=== PATIENT | female | born 1980 | race African-American/Black ===

== ENCOUNTER 2017-12-22 07:17 | Emergency (ER) | payer MEDICAID ==
[~2017-12-22] VITALS: Ht 154.9 cm; Wt 57.0 kg
[2017-12-22 08:41] LABS: BASOPHILS % 1.6 % (0.0-2.0); HEMATOCRIT. 30.4 % (36.0-48.0); HEMOGLOBIN. 9.2 g/dL (12.0-16.0); LYMPHOCYTES % 20.5 % (20.0-50.0); MEAN CORPUSCULAR HEMOGLOBIN 21.6 pg (28.0-32.0); MEAN CORPUSCULAR VOLUME 71.4 fL (81.0-99.0); MEAN PLATELET VOLUME 7.6 fl (7.4-10.4); MONOCYTES % 14.3 % (2.0-8.0); NEUTROPHILS % 62.6 % (40.0-76.0); PLATELET 219 x1000/uL (130-400); RED BLOOD CELL COUNT 4.26 mill/uL (4.2-5.4); RED CELL DISTRIBUTION WIDTH 19.2 % (11.6-14.6)
[2017-12-22 08:43] LABS: CHLORIDE 105 mEq/L (98-107)
[2017-12-22 08:59] LABS: CLARITY URINE CLEAR (CLEAR); COLOR URINE YELLOW (YELLOW); KETONES URINE NEGATIVE (NEGATIVE); LEUKOCYTE ESTERASE URINE 2+ (NEGATIVE); NITRITE URINE NEGATIVE (NEGATIVE); OCCULT BLOOD URINE NEGATIVE (NEGATIVE); PROTEIN URINE NEGATIVE (NEGATIVE); SPECIFIC GRAVITY URINE 1.013 (1.005-1.030)
[2017-12-22 12:09] VITALS: BP 113/76
== END 2017-12-22 12:13 | disposition home or self-care (01) ==
LOC: ER 07:17
DX: F41.9 Anxiety disorder, unspecified (principal); I10 Essential (primary) hypertension; D64.9 Anemia, unspecified; F17.200 Nicotine dependence, unspecified, uncomplicated; Z88.5 Allergy status to narcotic agent; Z98.890 Other specified postprocedural states
CPT/HCPCS: 36415; 80053; 81003; 81025; 84484; 85025; 93005; 99285

== ENCOUNTER 2019-04-08 13:02 | Inpatient (IN) | payer MEDICAID ==
[~2019-04-08] VITALS: Ht 154.9 cm; Wt 56.2 kg
[2019-04-08] MEDS ORDERED: SODIUM CHLORIDE 0.9% 1,000 ML IV ONE (13:46)
[2019-04-08 14:31] LABS: CLARITY URINE CLOUDY (CLEAR); COLOR URINE YELLOW (YELLOW); KETONES URINE NEGATIVE (NEGATIVE); LEUKOCYTE ESTERASE URINE 3+ (NEGATIVE); NITRITE URINE NEGATIVE (NEGATIVE); OCCULT BLOOD URINE NEGATIVE (NEGATIVE); PROTEIN URINE NEGATIVE (NEGATIVE); SPECIFIC GRAVITY URINE 1.017 (1.005-1.030); UROBILINOGEN URINE 0.2 E.U./dL (0.2-1.0)
[2019-04-08 14:31] LABS: HEMATOCRIT. 26.5 % (36.0-48.0); HEMOGLOBIN. 7.6 g/dL (12.0-16.0); MEAN CORPUSCULAR HEMOGLOBIN 18.1 pg (28.0-32.0); MEAN CORPUSCULAR VOLUME 63.3 fL (81.0-99.0); MEAN PLATELET VOLUME 8.7 fl (7.4-10.4); PLATELET 194 x1000/uL (130-400); RED BLOOD CELL COUNT 4.19 mill/uL (4.2-5.4); RED CELL DISTRIBUTION WIDTH 21.4 % (11.6-14.6)
[2019-04-08 14:38] LABS: CHLORIDE 109 mEq/L (98-107); PROTHROMBIN TIME 10.2 sec (9.6-11.0)
[2019-04-08 14:43] LABS: ETHANOL BLOOD < 10 mg/dL
[2019-04-08 14:44] LABS: *AMPHETAMINES SCREEN URINE NEGATIVE (NEGATIVE)
[2019-04-08 14:45] LABS: *BARBITURATES SCREEN URINE NEGATIVE (NEGATIVE); *BENZODIAZEPINES SCREEN URINE NEGATIVE (NEGATIVE); *COCAINE SCREEN URINE NEGATIVE (NEGATIVE); METHADONE URINE SCREEN NEGATIVE (NEGATIVE); OPIATES URINE SCREEN NEGATIVE (NEGATIVE); PHENCYCLIDINE URINE SCREEN NEGATIVE (NEGATIVE)
[2019-04-08 14:45] LABS: TOTAL IRON BINDING CAPACITY 500 ug/dL (250-450)
[2019-04-08] MEDS ORDERED: POTASSIUM CHLORIDE 20MEQ TABLET SR PO ONE (14:45)
[2019-04-08 14:48] LABS: CANNABINOID URINE SCREEN PRESUMTIVE POSITIVE (NEGATIVE)
[2019-04-08 14:50] LABS: HCG SCREEN NEGATIVE
[2019-04-08 15:18] LABS: PLATELET ESTIMATE NORMAL
[2019-04-08 15:53] LABS: T4 FREE 0.8 ng/dL (0.76-1.46)
[2019-04-08] MEDS ORDERED: CEFTRIAXONE 1 G PREMIX 50 ML IV ONE (16:00)
[2019-04-08 22:50] VITALS: BP 140/101
[2019-04-09] VITALS (9 sets, daily range): BP systolic 116–146; BP diastolic 59–101
[2019-04-09 09:28] LABS: BASOPHILS % 1.1 % (0.0-2.0); EOSINOPHILS % 0.9 % (0.0-5.0); HEMATOCRIT. 24.7 % (36.0-48.0); LYMPHOCYTES % 41.4 % (20.0-50.0); MEAN CORPUSCULAR HEMOGLOBIN 18.2 pg (28.0-32.0); MEAN PLATELET VOLUME 8.9 fl (7.4-10.4); MONOCYTES % 10.6 % (2.0-8.0); PLATELET 164 x1000/uL (130-400); RED BLOOD CELL COUNT 3.86 mill/uL (4.2-5.4); RED CELL DISTRIBUTION WIDTH 21.7 % (11.6-14.6)
[2019-04-09 09:43] LABS: CHLORIDE 112 mEq/L (98-107)
[2019-04-09] MEDS ORDERED: CLONIDINE 0.1MG TABLET PO PRN (09:45)
[2019-04-09] MEDS ORDERED: ACETAMINOPHEN 325MG TABLET PO PRN (09:45)
[2019-04-09] MEDS ORDERED: ONDANSETRON HCL 4MG/2ML INJ IV PRN (09:45)
[2019-04-09] MEDS ORDERED: DIPHENHYDRAMINE 50MG/ML VIAL IV NR (10:00)
[2019-04-09] MEDS ORDERED: ACETAMINOPHEN 325MG TABLET PO NR (10:00)
[2019-04-09 12:15] LABS: TOTAL IRON BINDING CAPACITY 442 ug/dL (250-450)
[2019-04-09 12:40] LABS: FOLIC ACID (FOLATE) SERUM 11.6 ng/mL (>5.38)
[2019-04-09] MEDS ORDERED: CYANOCOBALAMIN 1000MCG/ML VIAL IM NR (13:15)
[2019-04-09] MEDS ORDERED: IRON SUCROSE COMPLEX 100 MG/5 ML ML IV NR (14:00)
[2019-04-09] MEDS: SODIUM CHLORIDE 0.9% 1,000 ML IV SCH ×2 (15:40→21:26)
[2019-04-09] MEDS ORDERED: CEFTRIAXONE 1 G PREMIX 50 ML IV SCH (16:00)
[2019-04-09 20:54] LABS: HEMATOCRIT 29.4 % (36.0-48.0); HEMOGLOBIN 8.6 g/dL (12.0-16.0)
[2019-04-09] MEDS ORDERED: ZOLPIDEM TARTRATE 5MG TABLET PO PRN (21:00)
[2019-04-09] MEDS: CEFTRIAXONE 1 G PREMIX 50 ML IV SCH (21:25)
[2019-04-10] VITALS (11 sets, daily range): BP systolic 103–142; BP diastolic 68–85
[2019-04-10] MEDS ORDERED: IRON SUCROSE COMPLEX 100 MG/5 ML ML IV SCH (09:00)
[2019-04-10 09:13] LABS: HEMATOCRIT 27.8 % (36.0-48.0); HEMOGLOBIN 8.1 g/dL (12.0-16.0)
[2019-04-10] MEDS ORDERED: CYANOCOBALAMIN 1000MCG/ML VIAL IM SCH (18:00)
[2019-04-10] MEDS ORDERED: IRON SUCROSE COMPLEX 100 MG/5 ML ML IV NR (18:45)
[2019-04-10 19:39] LABS: HEMATOCRIT 30.8 % (36.0-48.0); HEMOGLOBIN 9.4 g/dL (12.0-16.0)
[2019-04-10] MEDS: CEFTRIAXONE 1 G PREMIX 50 ML IV SCH (20:28)
== END 2019-04-10 21:50 | disposition home or self-care (01) | DRG 663 ==
LOC: ER 13:02 → EDBEDREQ 14:46 → 8WST 15:56 → EDBEDREQ 16:02 → EDBEDREQTM 16:02 → ENRESERV 20:32
PROVIDERS: ADMIT Internal Medicine; ATTEND Internal Medicine
PROC: 30233N1 Transfusion of Nonautologous Red Blood Cells into Peripheral Vein, Percutaneous Approach (ICD-10-PCS; principal; 2019-04-09)
DX: D51.9 Vitamin B12 deficiency anemia, unspecified (principal); F50.89 Other specified eating disorder; E86.0 Dehydration; I69.354 Hemiplegia and hemiparesis following cerebral infarction affecting left non-dominant side; N39.0 Urinary tract infection, site not specified; E87.6 Hypokalemia; D50.9 Iron deficiency anemia, unspecified; I10 Essential (primary) hypertension; F17.200 Nicotine dependence, unspecified, uncomplicated; Z68.23 Body mass index [BMI] 23.0-23.9, adult; Z88.5 Allergy status to narcotic agent
CPT/HCPCS: 36415; 71045; 80048; 80305; 80320; 81003; 81025; 82270; 82607; 82728; 82746; 83540; 83550; 83880; 84439; 84443; 84484; 84703; 85014; 85018; 85044; 86850; 86900; 86920; 93005; 93970; 96361; 96374; 97162; 99285; C1893; J0696; J1200; J3420; J7030; J7040; P9016; G0480

== ENCOUNTER 2022-12-13 13:01 | Emergency (ER) | payer MEDICAID ==
[~2022-12-13] VITALS: Ht 162.6 cm; Wt 73.0 kg
[2022-12-13 13:08] VITALS: O2SAT 100
[2022-12-13] MEDS ORDERED: TETRACAINE 0.5% OPHTH DROPS 4ML BOTHEYE ONE (13:45)
[2022-12-13] MEDS ORDERED: FLUORESCEIN SODIUM 1MG/STRIP BOTHEYE ONE (13:45)
[2022-12-13] MEDS ORDERED: ERYT1OIN6 EACHEYE (15:11)
[2022-12-13] MEDS ORDERED: ACET-2708 MT (15:11)
[2022-12-13 15:54] VITALS: BP 124/92; PULSE 74; RESP 18; TEMP 98.2
== END 2022-12-13 15:55 | disposition home or self-care (01) ==
LOC: ER 13:01
DX: S05.02XA Injury of conjunctiva and corneal abrasion without foreign body, left eye, initial encounter (principal); I10 Essential (primary) hypertension; Z88.5 Allergy status to narcotic agent; Z00.00 Encounter for general adult medical examination without abnormal findings; Z98.890 Other specified postprocedural states; X58.XXXA Exposure to other specified factors, initial encounter; Y93.89 Activity, other specified; Y92.89 Other specified places as the place of occurrence of the external cause; Y99.8 Other external cause status
CPT/HCPCS: 99283